=== PATIENT | male | born 1960 | race Caucasian/White ===

== ENCOUNTER 2017-10-22 23:38 | Emergency (ER) | payer BC ==
[~2017-10-22] VITALS: Ht 177.8 cm; Wt 136.1 kg
--- NOTE | 2017-10-23 00:03 | PHYS DOC ---
Adult General Chief Complaint Chief Complaint: ABDOMINAL PAIN HPI HPI Patient is a 57 year old male who presents with complaint of abdominal pain. Patient states his symptoms started at approximately 2100 this evening. Patient states he started getting severe tightness abdominal pain in his upper abdomen which she rated as 6 out of 10. Patient states that he has had similar symptoms in the past which were resolved with belching. Patient tried this at home for approximately 1 hour but got no relief. Patient states however his pain is improving at this time. Patient states he has history of hypertension and has had history of a gastric sleeve procedure done 6 years ago at [facility]. Patient states he has had no complications with this procedure. The patient has had nausea but no vomiting. Patient denies any changes in bowel movements and denies fever. Patient states that he takes his medication for blood pressure in the morning time. Review of Systems Review of Systems Constitutional: Denies fever or chills [] Eyes: Denies change in visual acuity, redness, or eye pain [] HENT: Denies nasal congestion or sore throat [] Respiratory: Denies cough or shortness of breath [] Cardiovascular: Denies chest pain or edema[] GI: Denies abdominal pain, nausea, vomiting, bloody stools or diarrhea [] : Denies dysuria or hematuria [] Musculoskeletal: Denies back pain or joint pain [] Integument: Denies rash or skin lesions [] Neurologic: Denies headache, focal weakness or sensory changes [] All other systems were reviewed and found to be within normal limits, except as documented in this note. Current Medications Current Medications Current Medications Medications (Trade) Dose Ordered Sig/Jerod Start Time Stop Time Status Last Admin Dose Admin Fentanyl Citrate (Fentanyl 2ml Vial) 50 mcg PRN Q15MIN PRN 10/23/17 00:15 10/24/17 00:14 10/23/17 00:42 50 MCG Hydralazine HCl (Apresoline Inj) 10 mg 1X ONCE 10/23/17 00:30 10/23/17 00:31 DC 10/23/17 00:47 10 MG Ondansetron HCl (Zofran) 4 mg 1X ONCE 10/23/17 00:30 10/23/17 00:31 DC 10/23/17 00:41 4 MG Sodium Chloride 1,000 ml @ 125 mls/hr Q8H 10/23/17 00:15 10/23/17 08:14 10/23/17 00:15 125 MLS/HR Allergies Allergies Allergies Coded Allergies Type Severity Reaction Last Updated Verified Penicillins Allergy Severe 10/22/17 Yes Physical Exam Physical Exam Constitutional: Alert, afebrile, appears in mild to moderate discomfort. [] HENT: Normocephalic, atraumatic, bilateral external ears normal, oropharynx moist, no oral exudates, nose normal. [] Eyes: PERRLA, EOMI, conjunctiva normal, no discharge. [] Neck: Normal range of motion, no tenderness, supple, no stridor. [] Cardiovascular:Heart rate regular rhythm, no murmur [] Lungs & Thorax: Bilateral breath sounds clear to auscultation [] Abdomen: Bowel sounds normal, soft, no tenderness, no masses, no pulsatile masses. [] Skin: Warm, dry, no erythema, no rash. [] Back: No tenderness, no CVA tenderness. [] Extremities: No tenderness, no cyanosis, no clubbing, ROM intact, no edema. [] Neurologic: Alert and oriented X 3, normal motor function, normal sensory function, no focal deficits noted. [] Current Patient Data Vital Signs Vital Signs Date Time Temp Pulse Resp B/P (MAP) Pulse Ox O2 Delivery O2 Flow Rate FiO2 10/23/17 00:47 71 178/90 10/23/17 00:42 25 97 Room Air 10/22/17 23:59 97.6 97.6 Lab Values Laboratory Tests Test 10/23/17 00:05 White Blood Count 10.0 x10^3/uL (4.0-11.0) Red Blood Count 5.35 x10^6/uL (4.30-5.70) Hemoglobin 17.2 g/dL (13.0-17.5) Hematocrit 52.6 % (39.0-53.0) Mean Corpuscular Volume 98 fL (79-100) Mean Corpuscular Hemoglobin 32 pg (25-35) Mean Corpuscular Hemoglobin Concent 33 g/dL (31-37) Red Cell Distribution Width 13.2 % (11.5-14.5) Platelet Count 212 x10^3/uL (140-400) Neutrophils (%) (Auto) 78 % (31-73) H Lymphocytes (%) (Auto) 13 % (24-48) L Monocytes (%) (Auto) 7 % (0-9) Eosinophils (%) (Auto) 1 % (0-3) Basophils (%) (Auto) 1 % (0-3) Neutrophils # (Auto) 7.7 x10^3uL (1.8-7.7) Lymphocytes # (Auto) 1.3 x10^3/uL (1.0-4.8) Monocytes # (Auto) 0.7 x10^3/uL (0.0-1.1) Eosinophils # (Auto) 0.1 x10^3/uL (0.0-0.7) Basophils # (Auto) 0.1 x10^3/uL (0.0-0.2) Urine Collection Type Unknown Urine Color Yellow Urine Clarity Clear Urine pH 6.0 Urine Specific [place] 1.025 Urine Protein 30 mg/dL (NEG-TRACE) Urine Glucose (UA) Negative mg/dL (NEG) Urine Ketones (Stick) Negative mg/dL (NEG) Urine Blood Negative (NEG) Urine Nitrite Negative (NEG) Urine Bilirubin Negative (NEG) Urine Urobilinogen Dipstick 1.0 mg/dL (0.2 mg/dL) Urine Leukocyte Esterase Negative (NEG) Urine RBC 0 /HPF (0-2) Urine WBC 1-4 /HPF (0-4) Urine Squamous Epithelial Cells Few /LPF Urine Bacteria 0 /HPF (0-FEW) Urine Mucus Mod /LPF Sodium Level 139 mmol/L (136-145) Potassium Level 4.5 mmol/L (3.5-5.1) Chloride Level 102 mmol/L (98-107) Carbon Dioxide Level 26 mmol/L (21-32) Anion Gap 11 (6-14) Blood Urea Nitrogen 17 mg/dL (8-26) Creatinine 1.1 mg/dL (0.7-1.3) Estimated GFR (Cockcroft-Gault) 68.8 BUN/Creatinine Ratio 15 (6-20) Glucose Level 138 mg/dL (70-99) H Calcium Level 8.9 mg/dL (8.5-10.1) Total Bilirubin 0.8 mg/dL (0.2-1.0) Aspartate Amino Transferase (AST) 47 U/L (15-37) H Alanine Aminotransferase (ALT) 41 U/L (16-63) Alkaline Phosphatase 130 U/L (46-116) H Creatine Kinase 263 U/L (39-308) Creatine Kinase MB (Mass) 3.2 ng/mL (0.0-3.6) Creatine Kinase MB Relative Index 1.2 % (0-4) Troponin I Quantitative < 0.017 ng/mL (0.000-0.055) Total Protein 7.8 g/dL (6.4-8.2) Albumin 3.8 g/dL (3.4-5.0) Albumin/Globulin Ratio 1.0 (1.0-1.7) Lipase 148 U/L (73-393) Laboratory Tests 10/23/17 00:05 Laboratory Tests 10/23/17 00:05 EKG EKG Interpreted by me: Heart rate 70, sinus rhythm, normal intervals, leftward axis , no acute ST/T-wave abnormalities present[] Radiology/Procedures Radiology/Procedures 3 view acute abdominal series interpreted by me: No pulmonary infiltrates or effusions, nonobstructive bowel gas pattern, no free air under the diaphragm [facility] [address] [place] [address] IMAGING REPORT Signed PATIENT: SANDRA ORTEGA ACCOUNT: [id number] : 1960 LOCATION: ER AGE: 57 SEX: M EXAM STATUS: REG ER ORD. PHYSICIAN: DELMIS BOSS MD REASON: epigastric pain, elevated liver enzymes PROCEDURE: ABDOMEN LTD EXAM: RIGHT UPPER QUADRANT ULTRASOUND. HISTORY: Epigastric pain, elevated liver enzymes COMPARISON: None. FINDINGS: Sonographic evaluation of the right upper quadrant was performed. Visualization is limited by habitus. Hyperechogenicity of the hepatic parenchyma indicates diffuse hepatic steatosis. Sensitivity for focal lesions is decreased in this setting, but not are seen. Multiple stones are seen within the gallbladder. There is no pericholecystic fluid or clear wall thickening. There is no sonographic Rayo sign. The common duct is not well seen but appears to measure 5 mm. The pancreas is not well visualized. No gross abnormality is seen. The right kidney measures 10.8 cm. Cortical thickness and echogenicity are preserved. There is no hydronephrosis. The visualized portions of the abdominal aorta and inferior vena cava are grossly patent and normal in caliber. IMPRESSION: 1. Cholelithiasis. No clear sonographic evidence of acute cholecystitis. 2. Diffuse hepatic steatosis. 3. Limited visualization. The common duct and pancreas are not well seen. Electronically signed by: Arya Montana MD (10/23/2017 2:09 AM) [facility] DICTATED and SIGNED BY: CYNTHIA MONTANA MD DATE: 10/23/17 020 CC: DELMIS BOSS MD; TREASURE ROMERO Jr, MD ~ [] Course & Med Decision Making Course & Med Decision Making Pertinent Labs and Imaging studies reviewed. (See chart for details) Patient was treated with fentanyl for pain and was also treated with hydralazine for high blood pressure. On reevaluation, patient's symptoms have improved and the patient states that he is feeling much better at this time. The patient's ultrasound shows evidence of only lithiasis with no evidence of cholecystitis. The patient's symptoms are consistent with biliary colic. The patient is appropriate for discharge at this time with recommended follow-up with the patient's surgeon at [facility] for evaluation and discussion of elective cholecystectomy. Advised return to emergency department for any worsening symptoms. Patient voiced understanding and in agreement with treatment plan. Dragon Disclaimer Dragon Disclaimer This electronic medical record was generated, in whole or in part, using a voice recognition dictation system. Departure Departure Impression: Primary Impression: Biliary colic Additional Impression: Accelerated hypertension Disposition: 01 HOME, SELF-CARE Condition: IMPROVED Referrals: TREASURE ROMERO Jr, MD (PCP) Patient Instructions: Biliary Colic, Hypertension Additional Instructions: Follow-up with general surgery at [facility] in the next 1- 2 weeks for evaluation for surgery to remove your gallbladder. Return to the emergency department for any worsening symptoms. Scripts Hydrocodone/Apap 5-325 (NORCO 5-325 TABLET) 1 Each Tablet 1-2 TAB PO Q4-6HRS Y for PAIN, #20 TAB Prov: DELMIS BOSS MD 10/23/17 Problem Qualifiers DELMIS BOSS MD Oct 23, 2017 00:03
[2017-10-23] MEDS ORDERED: fentaNYL PF VIAL 100 MCG/2 ML VIAL IV PRN (00:15)
[2017-10-23] MEDS ORDERED: IV NORMAL SALINE 1000ML BAG 1,000 ML IV SCH (00:15)
[2017-10-23 00:26] LABS: BILIRUBIN,URINE NEGATIVE (NEG); GLUCOSE,URINE NEGATIVE (NEG); NITRITE,URINE NEGATIVE (NEG); PROTEIN,URINE 30 mg/dL (NEG-TRACE)
[2017-10-23 00:27] LABS: BASO # 0.1 x10^3/uL (0.0-0.2); BASO % 1 % (0-3); EOS % 1 % (0-3); HEMATOCRIT 52.6 % (39.0-53.0); HEMOGLOBIN 17.2 g/dL (13.0-17.5); LYMPH # 1.3 x10^3/uL (1.0-4.8); LYMPH % 13 % (24-48); MEAN CORPUSCULAR HEMOGLOBIN 32 pg (25-35); MEAN CORPUSCULAR HGB CONC 33 g/dL (31-37); MEAN CORPUSCULAR VOLUME 98 fL (79-100); MONO % 7 % (0-9); NEUT % 78 % (31-73); PLATELET COUNT 212 x10^3/uL (140-400); RED BLOOD COUNT 5.35 x10^6/uL (4.30-5.70); RED CELL DISTRIBUTION WIDTH 13.2 % (11.5-14.5)
[2017-10-23] MEDS ORDERED: hydrALAZINE 20 MG/ML VIAL. IVP ONE (00:30)
[2017-10-23] MEDS ORDERED: ONDANSETRON PF 4 MG/2 ML VIAL. IV ONE (00:30)
[2017-10-23 00:43] LABS: BACTERIA,URINE 0 /HPF (0-FEW); RBC,URINE 0 /HPF (0-2); SQUAMOUS EPITHELIAL CELL,UR FEW /LPF
[2017-10-23 00:49] LABS: CALCIUM 8.9 mg/dL (8.5-10.1); CREATININE 1.1 mg/dL (0.7-1.3); GFR 68.8; POTASSIUM 4.5 mmol/L (3.5-5.1)
[2017-10-23 00:55] LABS: ALBUMIN 3.8 g/dL (3.4-5.0); TOTAL BILIRUBIN 0.8 mg/dL (0.2-1.0); TOTAL PROTEIN 7.8 g/dL (6.4-8.2)
[2017-10-23 01:02] LABS: CKMB MASS 3.2 ng/mL (0.0-3.6)
--- NOTE | 2017-10-23 02:13 | RAD ---
EXAM: RIGHT UPPER QUADRANT ULTRASOUND. HISTORY: Epigastric pain, elevated liver enzymes COMPARISON: None. FINDINGS: Sonographic evaluation of the right upper quadrant was performed. Visualization is limited by habitus. Hyperechogenicity of the hepatic parenchyma indicates diffuse hepatic steatosis. Sensitivity for focal lesions is decreased in this setting, but not are seen. Multiple stones are seen within the gallbladder. There is no pericholecystic fluid or clear wall thickening. There is no sonographic Rayo sign. The common duct is not well seen but appears to measure 5 mm. The pancreas is not well visualized. No gross abnormality is seen. The right kidney measures 10.8 cm. Cortical thickness and echogenicity are preserved. There is no hydronephrosis. The visualized portions of the abdominal aorta and inferior vena cava are grossly patent and normal in caliber. IMPRESSION: 1. Cholelithiasis. No clear sonographic evidence of acute cholecystitis. 2. Diffuse hepatic steatosis. 3. Limited visualization. The common duct and pancreas are not well seen. Electronically signed by: Arya Montana MD (10/23/2017 2:09 AM) [facility]
[2017-10-23 02:42] VITALS: BP 157/72
[2017-10-23] MEDS ORDERED: HYDR-971 PO (02:45)
--- NOTE | 2017-10-23 06:16 | EKG ---
[facility] [address] [place] [address] Test Date: 2017-10-23 Test Time: 00:00:08 Pat Name: SANDRA ORTEGA Department: Room: Gender: M Watch Supervisor: : 1960 Requested By: DELMIS BOSS Order Number: [id number] Reading MD: Measurements Intervals [place] Rate: 69 P: 38 [place]: 170 QRS: -6 QRSD: 104 T: 14 QT: 426 QTc: 463 Interpretive Statements SINUS RHYTHM LEFTWARD AXIS OTHERWISE NORMAL ECG No previous ECG available for comparison
--- NOTE | 2017-10-23 07:55 | RAD ---
PA view of the chest and supine and upright views of the abdomen were obtained. History: Pain Comparison: none There are linear opacities in the left lung base. There is air scattered throughout the colon. There is relative paucity of small bowel gas. There is no free air. Impression: 1. Nonobstructive bowel gas pattern suggesting a mild ileus.. 2. Possible early left lower lobe pneumonia.
== END 2017-10-23 02:55 | disposition home or self-care (01) ==
LOC: ER 23:38
DX: K80.50 Calculus of bile duct without cholangitis or cholecystitis without obstruction (principal); I10 Essential (primary) hypertension; Z88.0 Allergy status to penicillin
CPT/HCPCS: 36415; 74022; 76705; 80053; 81001; 82553; 83690; 84484; 85025; 93005; 96361; 96374; 96375; 99285; J0360; J2405; J3010; J7030